=== PATIENT | female | born 1925 | race Caucasian/White ===

== ENCOUNTER 2017-01-22 07:20 | Outpatient (CLI) | payer MEDICARE ==
[2017-01-22 07:55] LABS: Oxyhemoglobin 95.1 % (94.0-97.0); Sodium 140 mmol/L (135-148)
[2017-01-22 07:57] LABS: Mode RA; Vent NO
== END 2017-01-22 07:21 | disposition home or self-care (01) ==
LOC: CP 07:20
PROVIDERS: ATTEND Internal Medicine
DX: J18.9 Pneumonia, unspecified organism (principal)
CPT/HCPCS: 82805

== ENCOUNTER 2017-02-09 08:17 | Outpatient (CLI) | payer MEDICARE ==
--- NOTE | 2017-02-09 10:51 | RAD ---
TWO VIEWS OF THE CHEST: 02/09/2017 HISTORY: Dyspnea. COMPARISON: 12/29/2016 FINDINGS: There is a dual-lead transvenous pacing device, stable. There is no pneumothorax or pleural fluid a nd no focal consolidation or alveolar edema. There is a stable moderate sized hiatal hernia. Diffuse increased linear interstitial density is noted, stable. There are prominent anterior wedge compression fractures at multiple levels within the mid and lower thoracic spine, most prominent at the thoracolumbar junction. At least five such anterior wedge co mpression fractures are noted. There is associated markedly exaggerated thoracic kyphosis. Foci of calcification in the right upper quadrant suggests cholelithiasis. IMPRESSION: 1. Interstitial prominence with no focal consolidation or alveolar edema. 2. Hiatal hernia. 3. Numerous significant mid and lower thoracic spine compression fractures. 4. Probable cholelithiasis. POS: [facility]
== END 2017-02-09 08:18 | disposition home or self-care (01) ==
LOC: MAMMO 08:17 → CT 08:18
PROVIDERS: ATTEND Internal Medicine
DX: J18.9 Pneumonia, unspecified organism (principal); K44.9 Diaphragmatic hernia without obstruction or gangrene; M48.54XA Collapsed vertebra, not elsewhere classified, thoracic region, initial encounter for fracture
CPT/HCPCS: 71020

== ENCOUNTER 2017-04-08 11:51 | Emergency (ER) | payer MEDICARE ==
[2017-04-08 13:00] LABS: Bilirubin Negative (Negative); Blood, Urine Large (Negative); Glucose, Urine (Dipstick) Negative (Negative); Ketone, Urine Negative (Negative); Nitrite Negative (Negative); Protein, Urine (Dipstick) Negative (Neg-Trace); Urobilinogen 0.2 mg/dL (0.2-1.0)
[2017-04-08 13:03] LABS: Bacteria/HPF None Seen HPF (None Seen); Hyaline Casts/LPF 0-3 HYALINE CAST LPF (0-3 Hyaline); Squamous Epithelial 0-3 HPF (0-3)
[2017-04-08 13:06] LABS: #Eosinphils 0.4 thou/uL (0.0-0.7); #Lymphocytes 1.4 thou/uL (1.20-3.40); #Monocytes 0.8 thou/uL (0.11-0.59); %Basophils 0.3 % (0.0-1.0); %Eosinophils 3.9 % (0.0-10.0); %Lymphocytes 12.7 % (21.0-51.0); %Monocytes 7.9 % (0.0-10.0); Hematocrit 41.6 % (36.0-47.0); Mean Platelet Volume 7.4 fL (7.4-10.4); Red Blood Cell (RBC) Count 4.75 mill/uL (4.20-5.40); White Blood Cell (WBC) Count 10.6 thou/uL (4.8-10.8)
[2017-04-08 13:21] LABS: RBC/HPF 21-50 HPF (0-3)
[2017-04-08 13:25] LABS: ALT (SGPT) 12 U/L (8-55); AST (SGOT) 19 U/L (5-34); Alkaline Phosphatase 184 U/L (40-150); Anion Gap 16 mmol/L (10-20); BUN (Urea Nitrogen) 23 mg/dL (9.8-20.1); Bilirubin, Total 0.8 mg/dL (0.2-1.2); Calc. Creatinine Clearance 0 mL/min (70-130); Calcium 9.6 mg/dL (7.8-10.44); Carbon Dioxide 27 mmol/L (23-31); Chloride 99 mmol/L (98-107); Estimated GFR-MDRD 40; Globulin 3.4 g/dL (2.4-3.5); Protein, Total 7.3 g/dL (6.0-8.3)
--- NOTE | 2017-04-08 15:50 | CT ---
CT OF THE ABDOMEN AND PELVIS: 04/08/17 PROVIDED CLINICAL HISTORY: Flank pain. FINDINGS: Visualized lung bases are free of significant opacity. There is a calcified granuloma seen at the lef t lung base. The solid abdominal organs are suboptimally evaluated without IV contrast and demonstrate an unremark able unenhanced CT appearance with the exception of small nonobstructing renal calculi on the right m easuring about 2 to 3 mm and likely simple cyst involving the left kidney. There is no evidence for ureteral or bladder calculi. There is some limitations in evaluating the pel vis due to beam hardening artifact from right hip arthroplasty. Multiple gallstones are seen, without apparent distention of the gallbladder. Extensive atherosclerotic vascular calcification involves the abdominal aorta and its branches. 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 There is no bowel dilatation, inflammatory fat stranding, free fluid, free air or pneumatosis apparen t. Coronal and sagittal reconstructions of the lumbar spine were performed and compared to the radiogra phs of 12/29/16. Multiple chronic appearing compression deformities of the lower thoracic spine are se en. There is no evidence for lumbar compression deformity. Multilevel disc and facet degenerative ch anges are noted with stable anterolisthesis of L4 on L5. IMPRESSION: 1. Nonobstructing right nephrolithiasis. 2. Cholelithiasis. 3. Extensive atherosclerosis as above. 4. Remote appearing lower thoracic compression fractures and advanced multilevel lumbar degenera tive change. POS: [facility]
== END 2017-04-08 17:43 | disposition home or self-care (01) ==
LOC: ERS 11:51
DX: M54.5 Low back pain (principal); R30.0 Dysuria; I48.91 Unspecified atrial fibrillation; I50.9 Heart failure, unspecified
CPT/HCPCS: 36415; 51701; 74176; 80053; 81003; 81015; 85025; 87086; A4353

== ENCOUNTER 2017-04-14 07:52 | Inpatient (IN) | payer MEDICARE ==
[2017-04-14 11:03] LABS: #Eosinphils 0.2 thou/uL (0.0-0.7); #Lymphocytes 0.8 thou/uL (1.20-3.40); #Monocytes 0.6 thou/uL (0.11-0.59); #Neutrophils 6.9 thou/uL (1.40-6.50); %Basophils 0.1 % (0.0-1.0); %Lymphocytes 9.1 % (21.0-51.0); %Monocytes 6.9 % (0.0-10.0); %Neutrophils 81.9 % (42.0-75.0); Hemoglobin 11.3 g/dL (12.0-16.0); Mean Corpuscular HGB CONC 31.8 g/dL (32.0-36.0); Mean Corpuscular Hemoglobin 27.3 pg (27.0-31.0); Mean Corpuscular Volume 85.8 fl (81.0-99.0); Mean Platelet Volume 7.2 fL (7.4-10.4); Platelet Count 298 thou/uL (130-400); RBC Distribution Width 13.2 % (11.5-14.5); Red Blood Cell (RBC) Count 4.14 mill/uL (4.20-5.40); White Blood Cell (WBC) Count 8.5 thou/uL (4.8-10.8)
[2017-04-14 11:30] LABS: ALT (SGPT) 12 U/L (8-55); AST (SGOT) 19 U/L (5-34); Albumin 3.3 g/dL (3.4-4.8); Alkaline Phosphatase 135 U/L (40-150); Anion Gap 19 mmol/L (10-20); BUN (Urea Nitrogen) 59 mg/dL (9.8-20.1); Bilirubin, Total 0.4 mg/dL (0.2-1.2); Calc. Creatinine Clearance 0 mL/min (70-130); Calcium 9.2 mg/dL (7.8-10.44); Carbon Dioxide 22 mmol/L (23-31); Chloride 100 mmol/L (98-107); Estimated GFR-MDRD 11; Glucose 84 mg/dL (83-110); Potassium 5.3 mmol/L (3.5-5.1); Protein, Total 6.3 g/dL (6.0-8.3); Sodium 136 mmol/L (136-145)
--- NOTE | 2017-04-14 12:38 | RAD ---
PA AND LATERAL CHEST: History: Shortness of breath, back pain. FINDINGS: Lungs are clear. Cardiomediastinal silhouette is within normal limits. Dual-lead pacemaker is not shashank reciably changed from comparison of 12-29-16. Calcified granuloma are again see within the left lower lobe. There is diffuse osteopenia. There are multiple wedge compression abnormalities of the lower an d upper thoracic lumbar spine. IMPRESSION: No acute cardiopulmonary abnormality. POS: [facility]
--- NOTE | 2017-04-14 12:40 | RAD ---
THREE VIEWS LUMBAR SPINE: Indication: Back pain. FINDINGS: Wedge compression abnormalities at T11 and T12 are stable. Grade I anterolisthesis of L4 on L5 is sim ilar. There is a new central wedge compression abnormality of L3 of undetermined chronicity. This is new from December 2016. There are prominent vascular calcification noted involving the abdominal pel jesse vasculature. There is diffuse osteopenia. IMPRESSION: 1. Interval central and inferior central endplate compression abnormality of L3. 2. Stable chronic wedge compression abnormality at T11 and T12. 3. Stable anterolisthesis of L4 on L5. 4. Stable multilevel spondylosis. 5. Stable diffuse osteopenia. POS: [facility]
[2017-04-14] MEDS ORDERED: Fentanyl 100 MCG/2 ML VIAL ONE ×2 (13:27→13:30)
[2017-04-14 13:33] LABS: Bilirubin Negative (Negative); Blood, Urine Negative (Negative); Clarity CLOUDY (Clear); Glucose, Urine (Dipstick) Negative (Negative); Leukocyte Negative (Negative); Nitrite Negative (Negative); Protein, Urine (Dipstick) Trace mg/dL (Neg-Trace); Specific Gravity, Urine 1.013 (1.002-1.036); Urobilinogen 0.2 mg/dL (0.2-1.0); pH, Urine 5.5 (5.0-9.0)
--- NOTE | 2017-04-14 13:33 | CT ---
NONCONTRAST ABDOMEN AND PELVIS CT RENAL CALYX PROTOCOL: INDICATIONS: Abdominal pain. COMPARISON: 04/08/2017 FINDINGS: Redemonstration of nonobstructing right nephrolithiasis. There is vascular calcification of the left kidney, stable. There are stable exophytic hypodensities of the left kidney. Stable wedge-shaped d ensity of the posterior right pararenal space is seen. There is moderate distention of the gallbladd er with cholelithiasis. Diffuse vascular disease is present. A moderate hiatal hernia is partially visualized. The bowel is incompletely assessed without the presence of IV or enteric contrast. No significant interval detrimental change otherwise depicted. Redemonstration of compression deform ities of the lower thoracic spine. IMPRESSION: 1. Interval development of moderate distention of the gallbladder with associated cholelithiasis. C onsider gallbladder ultrasound to further characterize. 2. Redemonstration of nonobstructing right nephrolithiasis. POS: [facility]
[2017-04-14 14:43] LABS: Creatinine, Urine 39.84 mg/dL (47-110)
--- NOTE | 2017-04-14 15:44 | ULT ---
GALLBLADDER ULTRASOUND: History: Right upper quadrant pain. FINDINGS: Exam is technically difficult due to body habitus and gas. Real-time imaging of the right upper quadr ant shows echogenic foci with shadowing within the gallbladder consistent with gallstones. Common boo t is 5 mm. Visualized live parenchyma shows no focal abnormalities. The right kidney is normal in siz e and not obstructed. Visualized liver parenchyma shows no significant finding. There appears to be a calcification within the right lobe. IMPRESSION: Multiple cholelithiasis with a normal caliber common duct. POS: [facility]
[2017-04-14 15:52] LABS: CKMB 3.8 ng/mL (0-6.6); Troponin I 0.016 ng/mL (< 0.028)
[2017-04-14] MEDS ORDERED: Acetaminophen 325 MG TAB PO PRN (17:09)
[2017-04-14] MEDS ORDERED: Acetaminophen 650 MG Suppository PR PRN (17:09)
--- NOTE | 2017-04-14 18:16 | HP ---
PRIMARY CARE PHYSICIAN: Jesús Tobin M.D. CHIEF COMPLAINT: Loose stools. HISTORY OF PRESENT ILLNESS: Ms. Harmon is a pleasant 89-year-old lady who was seen at [facility] on 04/14/2017. She was hospitalized at this facility in 12/2016 for sepsis secondary to community-acquired pneumonia . She reports that she was doing well until 2 weeks ago. Around that time, she developed lower back pa in. She describes it as sharp, made worse when she moves around faster than usual, 8/10 at its worst . No known relieving factors. She has been taking 2 Advil tablets every 6 hours when awake over the last few days. She was seen in the emergency room on 04/08/2017. She was referred to Neurosurgery Service. She was seen in the Neurosurgery Office. Several days ago, she also had loss of bowel control. After that, her bowel movements were back to n ormal. Yesterday, she had another episode of loss of bowel control. She explains that what she mean s by loss of bowel control is that her stools are liquid and she is not aware of passing stool. She has not had a bowel movement since yesterday. She is also reported not eating or drinking well. She denies any chest pain or shortness of breath. She denies any fevers or chills. She denies any abdominal pain. REVIEW OF SYSTEMS: The following complete review of systems was negative, unless otherwise mentioned in the HPI or below: Constitutional: Weight loss or gain, sense of well-being, ability to conduct usual activities, exerc ise tolerance. Skin/Breast: Rash, itching, changes in hair growth or loss, nail changes, breast lumps, tenderness, swelling, nipple discharge. Eyes: Vision, double vision, tearing, blind spots, pain. ENT/Mouth: Headaches (location, time of onset, duration, precipitating factors), vertigo, lightheade dness, injury. Vision, double vision, tearing, blind spots, pain, nose bleeding, colds, obstruction, discharge, dental difficulties, gingival bleeding, dentures, neck stiffness, pain, tenderness, masses in thyroid or other areas Cardiovascular: Precordial pain, substernal distress, palpitations, syncope, dyspnea on exertion, or thopnea, nocturnal paroxysmal dyspnea, edema, cyanosis, hypertension, heart murmurs, varicosities, ph lebitis, claudication. Respiratory: Pain, shortness of breath, wheezing, stridor, cough, hemoptysis, fever or night sweats Gastrointestinal: Poor appetite, dysphagia, indigestion, abdominal pain, heartburn, eructation, naus ea, vomiting, hematemesis, jaundice, constipation, or diarrhea, abnormal stools (kian-colored, tarry, bloody, greasy, foul smelling), flatulence, hemorrhoids, recent changes in bowel habits. Genitourinary: Urgency, frequency, dysuria, nocturia, hematuria, polyuria, oliguria, unusual (or mika nge in) color of urine, stones, hesitancy, change in size of stream, dribbling, acute retention or in continence, libido, potency. Musculoskeletal: Pain, swelling, redness or heat of muscles or joints, limitation, of motion, muscul ar weakness, atrophy, cramps. Neurologic/Psychiatric: Convulsions, paralyses, tremor, incoordination, paraesthesias, difficulties with memory of speech, sensory or motor disturbances, or muscular coordination (ataxia, tremor), emot ional problems, anxiety, depression, previous psychiatric care, unusual perceptions, hallucinations. Allergy/Immunologic: Skin rash, anemia, bleeding tendency, polydipsia, polyuria, intolerance to heat or cold. PAST MEDICAL HISTORY: Significant for third degree AV block, status post pacemaker placement, chroni c diastolic heart failure, hypertension, senile dementia, humeral neck fracture and pneumonia. PAST SURGICAL HISTORY: Significant for hysterectomy, tonsillectomy, pacemaker placement and right hi p arthroplasty. FAMILY HISTORY: Significant for myocardial infarction in her father. SOCIAL HISTORY: The patient denies tobacco use, alcohol use or recreational drug use. CODE STATUS: I discussed code status. She is DNR. ALLERGIES: GADOLINIUM CONTRAST. CURRENT MEDICATIONS: Include Lasix 20 mg daily, aspirin 325 mg daily, Protonix 40 mg daily, Multaq 4 00 mg 2 times a day, potassium chloride 10 mEq daily, levofloxacin 750 mg daily. PHYSICAL EXAMINATION: GENERAL: On examination, Ms. Harmon is awake and alert, not in acute distress. VITAL SIGNS: Blood pressure is 101/47, pulse is 72. She is breathing at rate of 17 and saturating 9 2% on 2 liters of oxygen. She is afebrile. EYES: No scleral icterus. No conjunctival pallor. ENT: Dry mucosal membranes, no oropharyngeal erythema or exudates. NECK: Supple, nontender, normal range of movement, trachea is midline. RESPIRATORY: Accessory muscles of breathing are not active. Chest wall movements are symmetric bila terally. LUNGS: Clear to auscultation without wheeze, rhonchi or crepitations. CARDIOVASCULAR: S1 and S2 are heard, regular. LUNGS: Peripheral pulses palpable. No carotid bruit, no pericardial rub. ABDOMEN: Soft, nontender, bowel sounds are heard, no hepatomegaly, no splenomegaly. NEUROLOGIC: Cranial nerves II-XII are intact, deep tendon reflexes 2+. EXTREMITIES: There is no saddle anesthesia. Rectal sphincter tone is normal. MUSCULOSKELETAL: Power is 5/5 in all four extremities. She has tenderness to palpation over upper l umbar vertebrae. SKIN: No rashes or subcutaneous nodules. LYMPHATIC: No cervical lymphadenopathy. PSYCHIATRIC: Normal mood and normal affect, patient is oriented to person, place, and time. IMAGING DATA AND LABORATORY DATA: Ms. Harmon's labs and investigations were reviewed. I reviewe d her chest x-ray, which does not show any pulmonary infiltrates. I also reviewed her electrocardiog pawan, which shows electronic ventricular paced rhythm. She had lumbar spine x-rays, which showed cent ral and inferior central endplate compression abnormality of L3, stable chronic wedge compression abn ormality at T11 and T12, stable anterolisthesis of L4 and L5 and stable multilevel spondylosis as wel l as stable diffuse osteopenia. CT scan of the abdomen and pelvis done without contrast showed moder ate distention of gallbladder with associated cholelithiasis. She also had nonobstructing right neph rolithiasis. Abdominal ultrasound showed multiple cholelithiasis with normal caliber common duct. L aboratory investigation show normal white count, normocytic anemia with hemoglobin 11.3, normal plate let count, normal sodium, elevated potassium of 5.3, blood urea nitrogen of 59, elevated creatinine 3 .84, last known creatinine 1.24 on 04/08/2017, decreased albumin of 3.3, otherwise unremarkable liver function tests, elevated C-reactive protein of 1.43, normal urinalysis, urine creatinine 39.84 and u rine sodium 75. ASSESSMENT AND PLAN: Ms. Harmon is a pleasant 89-year-old lady who was seen at [facility] on 04/14/2017. Her problem list includes: 1. Acute kidney injury: Etiology unclear, but the patient has multiple risk factors, including nons teroidal anti-inflammatory agent use, poor oral intake and history of diarrhea. She will be admitted to the hospital and treated with intravenous fluids for now. We will follow creatinine and electrol ytes. If not improving, Nephrology consultation may be considered. 2. Hyperkalemia: We will administer Kayexalate and recheck potassium. 3. Diarrhea: No recurrence. If she has recurrence of diarrhea, stool studies to rule out infection will need to be considered. 4. Chronic diastolic heart failure: Stable at this time. 5. Hypertension: Monitor vital signs, titrate antihypertensives as needed. Many thanks for allowing me to participate in your patient's care. Please feel free to contact me wi th any questions or concerns. LEVEL OF RISK: High. LEVEL OF COMPLEXITY: High.
[2017-04-14] MEDS ORDERED: Dronedarone HCl 400 MG TAB PO SCH (20:00)
[2017-04-15] MEDS: Heparin 5,000 UNITS/ML VIAL SC SCH ×4 (00:17→21:30)
[2017-04-15] MEDS: Sodium Chloride 0.9% 1,000 ML IV SCH ×5 (00:18→21:30)
[2017-04-15 05:29] LABS: Anion Gap 13 mmol/L (10-20); BUN (Urea Nitrogen) 51 mg/dL (9.8-20.1); Calc. Creatinine Clearance 10 mL/min (70-130); Calcium 8.1 mg/dL (7.8-10.44); Carbon Dioxide 24 mmol/L (23-31); Chloride 105 mmol/L (98-107); Estimated GFR-MDRD 15; Glucose 69 mg/dL (83-110); Potassium 4.2 mmol/L (3.5-5.1); Sodium 138 mmol/L (136-145)
[2017-04-15 06:45] LABS: Mean Corpuscular HGB CONC 31.6 g/dL (32.0-36.0); Mean Corpuscular Hemoglobin 27.5 pg (27.0-31.0); Mean Platelet Volume 7.2 fL (7.4-10.4); Platelet Count 219 thou/uL (130-400); RBC Distribution Width 13.1 % (11.5-14.5); Red Blood Cell (RBC) Count 3.28 mill/uL (4.20-5.40)
[2017-04-15 06:49] LABS: Band 2 % (5-11); Eosinophils 6 % (0-10); Lymphocytes 18 % (21-51); MDiff Complete? YES; Monocytes 8 % (0-10); Neutrophil 65 % (42-75); PLT Morphology Comment Appears Adequate; Reactive Lymphocytes 1 % (0-10)
[2017-04-15 08:26] VITALS: BMI 18.8
[2017-04-15] MEDS ORDERED: Dronedarone HCl 400 MG TAB PO SCH (09:00)
--- NOTE | 2017-04-15 11:02 | PDOC.PN ---
- Subjective Encounter Start Date: 04/15/17 Encounter Start Time: 11:01 Subjective: no new complaints - Objective Resuscitation Status: Resuscitation Status DNR:Do Not Resuscitate MAR Reviewed: Yes Vital Signs & Weight: Vital Signs (12 hours) Temp Pulse Resp BP Pulse Ox 04/15/17 04:00 98.1 F 64 20 98/49 L 94 L 04/14/17 23:07 97 Weight Admit Weight 108 lb 3.2 oz Weight 109 lb 11.2 oz I&O: 04/14/17 04/15/17 04/16/17 06:59 06:59 06:59 Intake Total 600 Output Total 500 Balance 100 Result Diagrams: 04/15/17 04:57 04/15/17 04:57 Phys Exam - Physical Examination Constitutional: NAD HEENT: PERRLA, moist MMs, sclera anicteric Neck: supple, full ROM Respiratory: no wheezing, no rhonchi, clear to auscultation bilateral Cardiovascular: RRR Gastrointestinal: soft, non-tender, positive bowel sounds Musculoskeletal: no edema, pulses present Neurological: non-focal, moves all 4 limbs Psychiatric: normal affect, A&O x 3 Dx/Plan (1) NOMAN (acute kidney injury) Code(s): N17.9 - ACUTE KIDNEY FAILURE, UNSPECIFIED Status: Acute (2) Chronic diastolic (congestive) heart failure Code(s): I50.32 - CHRONIC DIASTOLIC (CONGESTIVE) HEART FAILURE Status: Acute (3) Anemia, normocytic normochromic Code(s): D64.9 - ANEMIA, UNSPECIFIED Status: Chronic (4) Compression fracture Code(s): GXU1634 - Status: Chronic Comment: prob the cause of back pain (5) HTN (hypertension) Code(s): I10 - ESSENTIAL (PRIMARY) HYPERTENSION Status: Chronic Qualifiers: - Plan cont current plan of care NOMAN improved continue gentle hydration. * .
[2017-04-15] MEDS: Dronedarone HCl 400 MG TAB PO SCH (21:30)
[2017-04-16 06:13] LABS: Anion Gap 11 mmol/L (10-20); BUN (Urea Nitrogen) 34 mg/dL (9.8-20.1); Calc. Creatinine Clearance 18 mL/min (70-130); Calcium 8.1 mg/dL (7.8-10.44); Carbon Dioxide 24 mmol/L (23-31); Chloride 112 mmol/L (98-107); Estimated GFR-MDRD 29; Glucose 73 mg/dL (83-110); Potassium 3.7 mmol/L (3.5-5.1); Sodium 143 mmol/L (136-145)
[2017-04-16] MEDS ORDERED: FLU VACC TS2017-18 (>65YR) 0.5 ML SYRINGE IM ONE (09:00)
[2017-04-16] MEDS: Heparin 5,000 UNITS/ML VIAL SC SCH ×3 (09:49→20:46)
[2017-04-16] MEDS: Dronedarone HCl 400 MG TAB PO SCH ×2 (09:50→20:45)
--- NOTE | 2017-04-16 14:31 | PDOC.PN ---
- Subjective Encounter Start Date: 04/16/17 Encounter Start Time: 14:29 Subjective: feels much better and wants to go home - Objective Resuscitation Status: Resuscitation Status DNR:Do Not Resuscitate MAR Reviewed: Yes Vital Signs & Weight: Vital Signs (12 hours) Temp Pulse Resp BP Pulse Ox 04/16/17 04:00 97.9 F 64 20 134/62 95 Weight Admit Weight 108 lb 3.2 oz Weight 110 lb 14.4 oz I&O: 04/15/17 04/16/17 04/17/17 06:59 06:59 06:59 Intake Total 600 1920 Output Total 500 500 Balance 100 1420 Result Diagrams: 04/15/17 04:57 04/16/17 05:12 Additional Labs: Accuchecks 04/16/17 04/16/17 04/15/17 11:32 06:26 21:00 POC Glucose 231 H 71 101 04/15/17 17:46 POC Glucose 160 H Laboratory Tests 04/08/17 04/14/17 04/15/17 12:56 10:53 04:57 Hgb 13.2 11.3 L 9.0 L Phys Exam - Physical Examination Constitutional: NAD HEENT: PERRLA, moist MMs, sclera anicteric, oral pharynx no lesions Neck: no nodes, no JVD, supple, full ROM Respiratory: no wheezing, no rales, no rhonchi, clear to auscultation bilateral Cardiovascular: RRR, no significant murmur Gastrointestinal: soft, non-tender, no distention, positive bowel sounds Musculoskeletal: no edema, pulses present Neurological: non-focal, normal sensation, moves all 4 limbs Psychiatric: normal affect, A&O x 3 Skin: no rash Dx/Plan (1) NOMAN (acute kidney injury) Code(s): N17.9 - ACUTE KIDNEY FAILURE, UNSPECIFIED Status: Acute (2) Cholelithiasis Code(s): K80.20 - CALCULUS OF GALLBLADDER W/O CHOLECYSTITIS W/O OBSTRUCTION Status: Acute (3) Dehydration Code(s): E86.0 - DEHYDRATION Status: Acute (4) Chronic diastolic (congestive) heart failure Code(s): I50.32 - CHRONIC DIASTOLIC (CONGESTIVE) HEART FAILURE Status: Chronic (5) Anemia, normocytic normochromic Code(s): D64.9 - ANEMIA, UNSPECIFIED Status: Chronic (6) GERD (gastroesophageal reflux disease) Code(s): K21.9 - GASTRO-ESOPHAGEAL REFLUX DISEASE WITHOUT ESOPHAGITIS Status: Chronic (7) HTN (hypertension) Code(s): I10 - ESSENTIAL (PRIMARY) HYPERTENSION Status: Chronic Qualifiers: (8) Protein-calorie malnutrition, moderate Code(s): E44.0 - MODERATE PROTEIN-CALORIE MALNUTRITION Status: Chronic - Plan DVT proph w/SCDs discussed finding of abdominal CT & US w pt-she does not want further tests -: pt does not want surgical input for cholelithiasis as she is asymptomatic -: renal Fx much improved.OK to DC home. -: will consult OT,PT and HH on DC -: instructed to f/u w PCP in next 2-3 days w BMP. * . Review of Systems - Review of Systems Constitutional: negative: fever, chills, sweats, weakness, malaise, other ENT: negative: Ear Pain, Ear Discharge, Nose Pain, Nose Discharge, Nose Congestion, Mouth Pain, Mouth Swelling, Throat Pain, Throat Swelling, Other Respiratory: negative: Cough, Dry, Shortness of Breath, Hemoptysis, SOB with Excertion, Pleuritic Pain, Sputum, Wheezing Cardiovascular: negative: chest pain, palpitations, orthopnea, paroxysmal nocturnal dyspnea, edema, light headedness, other Gastrointestinal: negative: Nausea, Vomiting, Abdominal Pain, Diarrhea, Constipation, Melena, Hematochezia, Other Genitourinary: negative: Dysuria, Frequency, Incontinence, Hematuria, Retention , Other Musculoskeletal: negative: Neck Pain, Shoulder Pain, Arm Pain, Back Pain, Hand Pain, Leg Pain, Foot Pain, Other Neurological: negative: Weakness, Numbness, Incoordination, Change in Speech, Confusion, Seizures, Other - Medications/Allergies Allergies/Adverse Reactions: Allergies Allergy/AdvReac Type Severity Reaction Status Date / Time Gadolinium-Containing Allergy Verified 12/27/16 06:18 Contrast Medi Medications: Current Medications Acetaminophen (Tylenol) 650 mg PO Q4H PRN PRN Reason: Headache/Fever or Pain Acetaminophen (Tylenol) [address] Q4H PRN PRN Reason: Headache/Fever or Pain Aspirin (Aspirin) 325 mg PO DAILY [facility] Dronedarone (Multaq) 200 mg PO BID [facility] Last Admin: 04/16/17 09:50 Dose: 200 mg Heparin Sodium (Porcine) (Heparin) 5,000 units SC TID [facility] Last Admin: 04/16/17 09:49 Dose: 5,000 units Sodium Chloride (Normal Saline 0.9%) 1,000 mls @ 70 mls/hr IV .[id number] [facility] Last Admin: 04/15/17 21:30 Dose: 1,000 mls Pantoprazole Sodium (Protonix) 40 mg PO QPM [facility] Last Admin: 04/15/17 21:30 Dose: 40 mg Sodium Chloride (Flush - Normal Saline) 10 ml IVF Q12HR [facility] Last Admin: 04/16/17 09:50 Dose: Not Given Sodium Chloride (Flush - Normal Saline) 10 ml IVF PRN PRN PRN Reason: Saline Flush
[2017-04-16] MEDS: Sodium Chloride 0.9% 1,000 ML IV SCH (15:00)
--- NOTE | 2017-04-17 00:02 | DIS ---
DATE OF ADMISSION: 04/14/2017 DATE OF DISCHARGE: 04/16/2017 PRIMARY CARE PHYSICIAN: Jesús Tobin M.D. DISCHARGE DISPOSITION: Home with home health. DISCHARGE DIAGNOSES: 1. Acute renal insufficiency, improved. 2. Asymptomatic cholelithiasis. 3. Dehydration. 4. Chronic diastolic congestive heart failure. 5. Chronic normocytic normochromic anemia. 6. Gastroesophageal reflux disease. 7. Hypertension. 8. Protein calorie malnutrition. DISCHARGE MEDICATIONS: As follows, aspirin 81 mg, Multaq 200 mg p.o. b.i.d., Protonix 40 mg daily. The patient is instructed to hold her furosemide and potassium chloride. So she has been seen by her primary care physician. CONSULTATIONS IN THE HOSPITAL: None PROCEDURES DONE IN THE HOSPITAL: Include, 1. CT scan of abdomen and pelvis, which showed interval development of distention of the gallbladder with cholelithiasis and nonobstructing right nephrolithiasis. 2. Abdominal ultrasound, which confirms the finding of cholelithiasis without CBD dilatation. 3. Spinal x-ray, which showed compression abnormality of L3 and chronic wedge compression of T11 and T12 and multiple level of spondylosis and osteopenia. ADMISSION HISTORY: Ms. Harmon is an 89-year-old female with past medical history of pacemaker pl acement for third-degree AV block as well as chronic diastolic heart failure, hypertension who presen deyvi to the emergency room for complaints of worsening of chronic low back pain and loss of bowel cont rol. She was seen by Neurosurgery as an outpatient. Upon presentation to the emergency room, she wa s found to have acute kidney insufficiency with elevated creatinine of 3.84 and was admitted for furt her evaluation. Please see admission history and physical for further details. HOSPITAL COURSE: The patient was rehydrated with IV fluids with improvement in her creatinine. She was evaluated by Physical Therapy and was discharged. She did have evidence of cholelithiasis in CT scan of the abdomen and pelvis, but she was asymptomatic. Options were provided for surgical evaluat ion, but the patient declined. On the day of discharge, she was back to her baseline and was eager to go home. I have instructed he r to continue to hold the Lasix and follow up with her primary care physician with outpatient BMP in 3-4 days and she verbalized understanding. Home health was arranged for her and she was discharged b [facility] home under the care of the care provider who was present in the hospital with her.
[2017-04-17] MEDS: Sodium Chloride 0.9% 1,000 ML IV SCH (06:44)
[2017-04-17 06:50] LABS: Anion Gap 10 mmol/L (10-20); BUN (Urea Nitrogen) 19 mg/dL (9.8-20.1); Calc. Creatinine Clearance 33 mL/min (70-130); Calcium 8.4 mg/dL (7.8-10.44); Carbon Dioxide 24 mmol/L (23-31); Chloride 113 mmol/L (98-107); Estimated GFR-MDRD 57; Glucose 75 mg/dL (83-110); Potassium 3.6 mmol/L (3.5-5.1); Sodium 143 mmol/L (136-145)
[2017-04-17 08:14] VITALS: TEMP 98.1
[2017-04-17] MEDS ORDERED: Aspirin 325 MG TAB PO SCH (09:00)
[2017-04-17] MEDS: Dronedarone HCl 400 MG TAB PO SCH (10:06)
[2017-04-17] MEDS: Heparin 5,000 UNITS/ML VIAL SC SCH (10:06)
[2017-04-17 12:10] VITALS: BP 158/72
--- NOTE | 2017-04-23 18:38 | PQF ---
GERSON BURDEN RICHA MD [id number] CLINICAL DOCUMENTATION CLARIFICATION FORM: POST DISCHARGE Addendum to original discharge summary date: ____ Late entry note date: __ DATE: 04/23/2016 ATTN: Sharita Zhong MD Please exercise your independent, professional judgment in responding to the clarification form. Clinical indicators are provided on the bottom of this form for your review Discharge Summary pg. 1 Discharge Diagnosis: #1 Acute Renal Insufficiency, improved H & P pg. 3 Assessment and Plan #1. Acute Kidney Injury Progress Note 04/16/16 pg 4 Dx/Plan (1) NOMAN (Acute Kidney Failure, Unspecified Please check appropriate box(s): [ X ] Acute Renal Insufficency NOS [ ] Acute Renal Failure (ARF) / Acute Kidney Injury (NOMAN) (Please specify associated condition, if applicable) [ ] Acute Tubular Necrosis (ATN) [ ] Acute Interstitial Nephritis (AIN) [ ] Acute Cortical Necrosis [ ] Acute Medullary Necrosis [ ] Other Etiology or underlying conditions related to the diagnosis of ARF/ NOMAN: [ ] Acute on Chronic Renal Failure please specify Stage of CKD (see below) [ ] CKD without ARF/NOMAN please specify Stage of CKD [ ] ESRD [ ] Other diagnosis [ ] Unable to determine In addition, please specify: Present on Admission (POA): [X ] Yes [ ] No [ ] Unable to determine National Kidney Foundation Guidelines for CKD Staging Stage I Kidney damage with normal or increased GFRGFR > 90 Stage IIKidney damage with mildly decreased GFRGFR 60-89 Stage III Kidney damage with moderately decreased GFRGFR 30-59 Stage IVKidney damage with severely decreased GFRGFR 16-29 Stage VKidney failure GFR<15 ESRDEnd Stage Renal Disease On dialysis [employer] Crystal Reports Winform ViewerFor continuity of documentation, please document condition throughout progress notes and discharge summary. Thank You. CLINICAL INDICATORS - SIGNS / SYMPTOMS / LABS Decreased urine output (< 30 ml hr) / prolonged azotemia / documentation of oliguria / anuria) Abnormal labs (BUN, creatinine, K+, creatinine clearance, low GFR) Hypotension with prolonged decreased renal perfusion Urinalysis (epithelial cells, muddy brown granular casts, and/or coarse granular casts urine Na > 40) Metabolic acidosis Nausea / Vomiting / Diarrhea Edema Lethargy or fatigue RISK FACTORS Dehydration Use of HARJIT inhibitors, NSAIDS, diuretics Nephrotoxins (drugs and contrast) Primary renal disease, vasculitis or interstitial nephritis Obstructive Nephropathy Shock TREATMENTS: IV ?uid challenge result Pharmacy / nephrology consult Dialysis Correction of electrolytes / acidosis (This form is maintained as a part of the permanent medical record) 2014 [employer] All Rights Reserved Obiorsam Rodriguez [email or web address] [phone] SANCHEZ
== END 2017-04-17 12:08 | disposition home health service (06) | DRG 699 ==
LOC: ERS 07:52 → ERHOLD 16:23 → 2NO 21:47
PROVIDERS: ADMIT Internal Medicine; ATTEND Internal Medicine
DX: N28.9 Disorder of kidney and ureter, unspecified (principal); I50.32 Chronic diastolic (congestive) heart failure; E44.0 Moderate protein-calorie malnutrition; E87.5 Hyperkalemia; I11.0 Hypertensive heart disease with heart failure; Z68.1 Body mass index [BMI] 19.9 or less, adult; E86.0 Dehydration; K80.20 Calculus of gallbladder without cholecystitis without obstruction; D64.9 Anemia, unspecified; K21.9 Gastro-esophageal reflux disease without esophagitis; I10 Essential (primary) hypertension; M54.5 Low back pain; G89.29 Other chronic pain; Z79.82 Long term (current) use of aspirin; Z87.81 Personal history of (healed) traumatic fracture; Z95.0 Presence of cardiac pacemaker; Z91.041 Radiographic dye allergy status
CPT/HCPCS: 36415; 36416; 51702; 71046; 72100; 74176; 76705; 80048; 80053; 81003; 82553; 82570; 83735; 84300; 84484; 85025; 85652; 86140; 93005; 96361; 96374; A4216; G8978-GP-CI; G8979-GP-CI; G8980-GP-CI; J1644; J3010

== ENCOUNTER 2017-05-07 15:49 | Outpatient (CLI) | payer MEDICARE ==
--- NOTE | 2017-05-07 17:22 | RAD ---
LUMBAR SPINE TWO VIEW 05/07/17 HISTORY: M48.56XA, possible fracture of the vertebra. COMPARISON: Radiographs of 04/14/17. FINDINGS: There is a new from the comparison examination compression fracture at L3 extending from the anterior to the posterior vertebral body. There is wedging of the inferior and superior end plates. There is 50% central loss of height with 20% posterior and 20% anterior height loss. No significant retropulsi on is appreciated. There is further height loss of the T12 compression fracture. There is anterolisth esis grade I of L4 over L5. Extensive vascular calcifications of the aorta. The possibility exists of a calcified celiac artery a neurysm. IMPRESSION: 1. New L3 compression fracture as described above with 20-30% posterior and 20% anterior height loss with approximately 50% mid vertebral body height loss. 2. Progression of height loss of the T12 compression fracture with similar appearance of the T11 compression fracture. 3. Unchanged L4 over L5 anterolisthesis. POS: OFF
--- NOTE | 2017-05-07 17:25 | RAD ---
RADIOGRAPH THORACIC SPINE 3 VIEWS: 05/07/17 HISTORY: 89-year-old female with thoracic spine pain with multiple compression fractures. COMPARISON: Two view chest radiograph of 04/14/17 and two view chest radiograph of 02/09/17. FINDINGS: Large gas-filled distended stomach herniated into the chest. Left subclavian dual lead pacemaker. Sev ere diffuse osteopenia. There are multiple compression and/or burst fractures of the thoracic spine, nonacute, including T4, T5, T7, T8, T9, T11, and T12. The most severe loss of height is T12. These re sult in severe kyphosis. There is no pleural effusion. IMPRESSION: 1. Severe kyphosis due to multiple chronic compression fractures of the thoracic spine. 2. Severe, diffuse osteoporosis. 3. Large hiatal hernia. 4. Pacemaker. 5. No significant interval change compared to two view chest radiograph of 02/09/17. POS: [facility]
== END 2017-05-07 15:50 | disposition home or self-care (01) ==
LOC: TBSIIMAG 15:49
PROVIDERS: ATTEND Neurological Surgery
DX: M48.56XA Collapsed vertebra, not elsewhere classified, lumbar region, initial encounter for fracture (principal); M48.54XA Collapsed vertebra, not elsewhere classified, thoracic region, initial encounter for fracture; M43.16 Spondylolisthesis, lumbar region; M40.204 Unspecified kyphosis, thoracic region; M81.0 Age-related osteoporosis without current pathological fracture; K44.9 Diaphragmatic hernia without obstruction or gangrene; Z95.0 Presence of cardiac pacemaker
CPT/HCPCS: 72072; 72100

== ENCOUNTER 2017-08-26 11:50 | Outpatient (CLI) | payer MEDICARE ==
--- NOTE | 2017-08-26 14:04 | RAD ---
PA AND LATEARL VIEWS OF THE CHEST: HISTORY: Dyspnea. FINDINGS: Comparison is made with the exam of 02/09/17. The heart size is borderline. The aorta is tortuous. A hiatal hernia is again seen. Left-sided pac ing device remains in place. No focal areas of consolidation, pneumothorax, or pleural effusions are seen. There are compressed vertebrae in the thoracic spine with increased kyphosis. Probable rico lithiasis in the right upper quadrant is again seen. IMPRESSION: No acute process. POS: [facility]
== END 2017-08-26 11:51 | disposition home or self-care (01) ==
LOC: RAD 11:50
PROVIDERS: ATTEND Internal Medicine
DX: R06.00 Dyspnea, unspecified (principal)
CPT/HCPCS: 71046